=== PATIENT | male | born 1975 | race Caucasian/White ===

== ENCOUNTER 2017-03-02 13:51 | Emergency (ER) | payer BC ==
[~2017-03-02 13:51] MED LIST: Acetaminophen/HYDROcodone 325-5 MG Tab PO ONE; Amoxicillin 500 MG Cap PO ONE
[2017-03-02 13:58] VITALS: BP 154/95
[2017-03-02] MEDS ORDERED: Lidocaine 2% Viscous Solution 15 ML Cup PO ONE (14:14)
[2017-03-02] MEDS ORDERED: Take Home: Amoxicillin 500 MG Cap, 2 Cap Pack PO ONE (14:14)
[2017-03-02] MEDS ORDERED: Aluminum Hydroxide/Magnesium Hydroxide/Simethicone Susp 30 ML Cup PO ONE (14:14)
[2017-03-02] MEDS ORDERED: Amoxicillin 500 MG Cap PO ONE (14:14)
[2017-03-02] MEDS ORDERED: Acetaminophen/HYDROcodone 325-5 MG Tab PO ONE (14:17)
[2017-03-02] MEDS ORDERED: Take Home: Acetaminophen/HYDROcodone 325-5 MG, 2 Tab Pack PO ONE (14:17)
--- NOTE | 2017-03-02 14:30 | EDM.PDOC ---
ED HPI GENERAL MEDICAL PROBLEM - General Chief Complaint: ENT Problem Stated Complaint: TOOTHACHE Time Seen by Provider: 03/02/17 14:03 Source of Information: Reports: Patient History Limitations: Reports: No Limitations - History of Present Illness INITIAL COMMENTS - FREE TEXT/NARRATIVE: This patient is a 41 year old male that presents to the ER. Patient reports that since Friday he has had right lower frontal tooth pain. Patient denies lopez, dizziness, n, v, d, f. No trismus. Airway intact. No facial cellulitis. Stable. Onset Date: 02/26/17 Location: Reports: Other (right frontal lower tooth.). Denies: Head, Face, Neck , Chest, Abdomen, Back, Pelvis Quality: Reports: Ache Severity: Mild Improves with: Reports: None Worsens with: Reports: None Associated Symptoms: Reports: No Other Symptoms. Denies: Confusion, Chest Pain , Cough, cough w sputum, Diaphoresis, Fever/Chills, Headaches, Loss of Appetite , Malaise, Nausea/Vomiting, Rash, Seizure, Shortness of Breath, Syncope, Weakness Tooth/Teeth Pain Score (Numeric/FACES): 8 - Related Data Allergies Allergy/AdvReac Type Severity Reaction Status Date / Time No Known Allergies Allergy Verified 03/02/17 13:58 Home Meds: Home Meds Dexlansoprazole [Dexilant] 60 mg PO DAILY 03/02/17 [History] Fluticasone Propionate [Fluticasone Propionate] 1 spray NASBOTH DAILY 03/02/17 [ History] Past Medical History HEENT History: Reports: Allergic Rhinitis - Past Surgical History HEENT Surgical History: Reports: Naso-Sinus Surgery, Oral Surgery Social & Family History - Tobacco Use Smoking Status *Q: Never Smoker - Caffeine Use Caffeine Use: Reports: Coffee, Soda - Alcohol Use Days Per Week of Alcohol Use: 7 Number of Drinks Per Day: 6 Total Drinks Per Week: 42 - Recreational Drug Use Recreational Drug Use: No ED ROS ENT - Review of Systems Review Of Systems: See Below Constitutional: Reports: No Symptoms HEENT: Reports: Other (tooth pain right lower frontal) Respiratory: Reports: No Symptoms Cardiovascular: Reports: No Symptoms Endocrine: Reports: No Symptoms GI/Abdominal: Reports: No Symptoms : Reports: No Symptoms Musculoskeletal: Reports: No Symptoms Skin: Reports: No Symptoms Neurological: Reports: No Symptoms Psychiatric: Reports: No Symptoms Hematologic/Lymphatic: Reports: No Symptoms Immunologic: Reports: No Symptoms ED EXAM, ENT - Physical Exam Exam: See Below Exam Limited By: No Limitations General Appearance: Alert, WD/WN, No Apparent Distress Eye Exam: Bilateral Eye: Normal Inspection, PERRL Ears: Normal External Exam, Normal Canal, Hearing Grossly Normal, Normal TMs Nose: Normal Inspection, Normal Mucousa, No Blood Mouth/Throat: Normal Lips, Normal Oropharynx, Dental Pain (right frontal lower) , Dental Tenderness (mild right frontal lower), Gum Swelling (mild right frontal lower). No: Dental Abcess, Dental Trauma Head: Atraumatic, Normocephalic Neck: Normal Inspection, Supple, Non-Tender, Full Range of Motion. No: Limited Range of Motion, Lymphadenopathy (L), Lymphadenopathy (R) Respiratory/Chest: No Respiratory Distress, Lungs Clear, Normal Breath Sounds, No Accessory Muscle Use Cardiovascular: Normal Peripheral Pulses, Regular Rate, Rhythm, No Edema, No Gallop, No JVD, No Murmur, No Rub Extremities: Normal Inspection Neurological: Alert, Oriented Psychiatric: Normal Affect, Normal Mood Skin: Warm, Dry, Intact, Normal Color, No Rash Lymphatic: No Adenopathy Course - Vital Signs Last Recorded V/S: Last Vital Signs Temp 97.6 F 03/02/17 13:56 Pulse 70 03/02/17 13:56 Resp 16 03/02/17 13:56 BP 154/95 H 03/02/17 13:56 Pulse Ox 97 03/02/17 13:56 - Orders/Labs/Meds Meds: Medications Discontinued Medications Generic Name Dose Route Start Last Admin Trade Name Renae PRN Reason Stop Dose Admin Hydrocodone Bitart/Acetaminophen 1 tab 03/02/17 14:17 03/02/17 14:26 Lucas 325-5 Mg PO 03/02/17 14:18 1 tab ONETIME ONE Administration Hydrocodone Bitart/Acetaminophen 2 packet 03/02/17 14:17 03/02/17 14:27 Take Home: Acetaminophen/Hydrocod, 2 Tab Pack PO 03/02/17 14:18 2 packet ONETIME ONE Administration Al Hydroxide/Mg Hydroxide 30 ml 03/02/17 14:14 03/02/17 14:27 Mag-Al Plus PO 03/02/17 14:15 30 ml ONETIME ONE Administration Amoxicillin 2 packet 03/02/17 14:14 03/02/17 14:27 Take Home: Amoxicillin 500 Mg, 2 Cap Pack PO 03/02/17 14:15 2 packet ONETIME ONE Administration Amoxicillin 500 mg 03/02/17 14:14 03/02/17 14:26 Amoxil PO 03/02/17 14:15 500 mg ONETIME ONE Administration Lidocaine HCl 15 ml 03/02/17 14:14 03/02/17 14:27 Xylocaine 2% Viscous PO 03/02/17 14:15 15 ml ONETIME ONE Administration Departure - Departure Time of Disposition: 14:26 Disposition: Home, Self-Care 01 Condition: good Clinical Impression: Dental caries - Discharge Information Instructions: Dental Abscess, [id number] Referrals: Esau Charlton MD [Primary Care Provider] - Forms: ED Department Discharge Additional Instructions: Followup with a Dentist Followup with your primary care provider as needed Return to the ER for worsening of condition or any emergent concerns Increase fluids Ice to painful area Amoxicillin 500mg 1 pill three times a day for 10 days #26 no refill #4 take home. Lucas 5/325mg 1-2 pills every 4-6 hours as needed for pain #15 n orefill #4 take home. - Assessment/Plan Plan: PLEASE SEE RN NOTE FOR PFSH.
== END 2017-03-02 14:40 | disposition home or self-care (01) ==
LOC: CC.ED 13:51
DX: K02.9 Dental caries, unspecified (principal); Z79.899 Other long term (current) drug therapy
CPT/HCPCS: 99282; A9270

== ENCOUNTER 2017-07-28 19:03 | Emergency (ER) | payer BC ==
[2017-07-28 19:10] VITALS: BP 110/91
[2017-07-28] MEDS ORDERED: Ketorolac 30 MG/ML SDV IVPUSH ONE (19:55)
--- NOTE | 2017-07-28 20:02 | EDM.PDOC ---
ED HPI GENERAL MEDICAL PROBLEM - General Chief Complaint: Abdominal Pain Stated Complaint: abdominal pain Time Seen by Provider: 07/28/17 19:34 Source of Information: Reports: Patient History Limitations: Reports: No Limitations - History of Present Illness INITIAL COMMENTS - FREE TEXT/NARRATIVE: Patient is a 42 year old male who presents to the ER with complaints of pelvic pain radiating to his back. He reports that about a week ago he was traveling for work and had a "rough ride." He returned home about 8 days ago and since then hasn't felt "quite right." He reports the pain initially started in the right side of his chest. He wondered if the rough truck ride caused an injury of some sort. He had a CXR done in clinic today which was negative. He then reports that yesterday he started having urinary frequency and through the night last night it got to a point where he was going to the bathroom every 5 minutes. He also reports that he had a fever at home, for which he has been taking Tylenol and ibuprofen. Last dose of tylenol was 30 minutes prior to arrival. Temperature on arrival 101.2 deg F. He reports that he was seen in the clinic today and diagnosed with UTI. His and him are wondering why he has been getting these UTIs and wondering if something else is going on. He reports that he was prescribed cipro and started that today. He reports that throughout the day he has developed more pain in his pelvic/groin area, with radiation to his back, prompting his ER visit. Patient reports urinary frequency, nausea, chest pain, and some lightheadedness. He denies any dysuria, hematuria, vomiting, diarrhea, shortness of breath. He reports that he has had some constipation, but he did have two hard small stools today. Does report he has had one episode of UTI in the past that took "about a month to get rid of." He reports that for about the past year he has had some issues with leaking urine, as well as difficulty emptying bladder completely. He reports he has noticed that his urinary stream has decreased and he has to strain to empty his bladder. Onset: Gradual Duration: Getting Worse Location: Reports: Pelvis Quality: Reports: Ache Severity: Moderate Associated Symptoms: Reports: Chest Pain, Fever/Chills, Loss of Appetite, Nausea /Vomiting (nausea), Weakness (fatigue). Denies: Confusion, Cough, cough w sputum, Diaphoresis, Headaches, Malaise, Rash, Seizure, Shortness of Breath, Syncope Treatments ISSUER: Reports: Acetaminophen, NSAIDS, Other Medication(s) ( Ciprofloxacin) Groin Pain Score (Numeric/FACES): 5 - Related Data Allergies Allergy/AdvReac Type Severity Reaction Status Date / Time No Known Allergies Allergy Verified 03/02/17 13:58 Home Meds: Home Meds Dexlansoprazole [Dexilant] 60 mg PO DAILY 03/02/17 [History] Fluticasone Propionate 1 spray NASBOTH DAILY 03/02/17 [History] ALPRAZolam [Alprazolam] 0.5 mg PO BID PRN 07/28/17 [History] Ciprofloxacin HCl [Cipro] 500 mg PO BID 07/28/17 [History] Naproxen [IMW: Naproxen] 500 mg PO Q8HR PRN #30 tab 07/28/17 [Rx] Tamsulosin HCl [Flomax] 0.4 mg PO DAILY #30 cap.er.24h 07/28/17 [Rx] Past Medical History HEENT History: Reports: Allergic Rhinitis Genitourinary History: Reports: UTI, Recurrent - Past Surgical History HEENT Surgical History: Reports: Naso-Sinus Surgery, Oral Surgery Social & Family History - Tobacco Use Smoking Status *Q: Former Smoker Used Tobacco, but Quit: Yes Month Tobacco Last Used: 8 YEARS AGO - Caffeine Use Caffeine Use: Reports: Coffee - Alcohol Use Days Per Week of Alcohol Use: 7 Number of Drinks Per Day: 12 Total Drinks Per Week: 84 - Recreational Drug Use Recreational Drug Use: No ED ROS GENERAL - Review of Systems Review Of Systems: See Below Constitutional: Reports: Fever, Chills, Fatigue, Decreased Appetite. Denies: Malaise, Weakness, Night Sweats, Diaphoresis, Weight Gain HEENT: Reports: No Symptoms Respiratory: Reports: No Symptoms. Denies: Shortness of Breath, Cough Cardiovascular: Reports: No Symptoms, Chest Pain ED EXAM, RENAL/ - Physical Exam Exam: See Below Exam Limited By: No Limitations General Appearance: Alert, WD/WN, No Apparent Distress Eye Exam: Bilateral Eye: EOMI, Normal Fundi, Normal Inspection Head: Atraumatic, Normocephalic Neck: Normal Inspection, Supple, Non-Tender, Full Range of Motion Respiratory/Chest: No Respiratory Distress, Lungs Clear, Normal Breath Sounds, No Accessory Muscle Use, Chest Non-Tender Cardiovascular: Normal Peripheral Pulses, Regular Rate, Rhythm, No Edema, No Gallop, No JVD, No Murmur, No Rub GI/Abdominal: Normal Bowel Sounds, Soft, No Organomegaly, No Distention, No Abnormal Bruit, No Mass, Pelvis Stable, Tender (pelvic). No: Guarding, Rigid, Rebound (Male) Exam: No Hernia, Normal Inspection, Circumcised, Suprapubic Fullness. No: Inguinal Lymphadenopathy, Penile Lesions, Scrotal Swelling, Scrotum Tenderness (L), Scrotum Tenderness (R), Testicular Mass, Testicular Tenderness ( L), Testicular Tenderness (R), Urethral Discharge Rectal (Males) Exam: Normal Rectal Tone, Other (prostate tenderness) Back Exam: Normal Inspection, Full Range of Motion. No: CVA Tenderness (L), CVA Tenderness (R) Extremities: Normal Inspection, Normal Range of Motion, Non-Tender, Normal Capillary Refill, No Pedal Edema Neurological: Alert, Oriented, CN II-XII Intact, Normal Cognition, Normal Gait, Normal Reflexes, No Motor/Sensory Deficits Psychiatric: Normal Affect, Normal Mood Skin Exam: Warm, Dry, Intact, Normal Color, No Rash Lymphatic: No Adenopathy Course - Vital Signs Last Recorded V/S: Last Vital Signs Temp 100.5 F 07/28/17 19:42 Pulse 99 07/28/17 19:03 Resp 16 07/28/17 19:03 BP 110/91 H 07/28/17 19:03 Pulse Ox 99 07/28/17 19:03 - Orders/Labs/Meds Orders: Active Orders 24 hr Category Date Time Status Abdomen Pelvis wo Cont [CT] Stat Exams 07/28/17 19:18 Taken CHLAMYDIA/GC NUCLEIC ACID AMP [MREF] Stat Lab 07/28/17 20:50 Received Labs: Laboratory Tests 07/28/17 07/28/17 07/28/17 Range/Units 19:45 19:45 19:45 WBC 14.0 H (5.0-10.0) 10^3/uL RBC 4.42 L (4.50-6.00) 10^6/uL Hgb 14.5 (14.0-18.0) g/dL Hct 42.6 (40.0-54.0) % MCV 96.4 H (82.0-94.0) fL MCH 32.8 H (27.0-32.0) pg MCHC 34.0 (33.0-38.0) g/dL RDW Coeff of Rodríguez 12.3 (11.0-15.0) % Plt Count 210 (150-400) 10^3/uL Neut % (Auto) 84.7 (35-85) % Lymph % (Auto) 5.4 L (10-55) % Throckmorton % (Auto) 9.1 (0-16) % Eos % (Auto) 0.7 (0-5) % Baso % (Auto) 0.1 (0-3) % Neut # (Auto) 11.81 H (1.80-7.00) 10^3/uL Lymph # (Auto) 0.75 L (1.00-4.80) 10^3/uL Throckmorton # (Auto) 1.27 H (0.00-0.80) 10^3/uL Eos # (Auto) 0.10 (0.00-0.45) 10^3/uL Baso # (Auto) 0.02 10^3/uL Sodium 140 (136-145) mEq/L Potassium 4.1 (3.5-5.0) mEq/L Chloride 101 (98-106) mEq/L Carbon Dioxide 29 (21-32) mmol/L BUN 13 (7-18) mg/dL Creatinine 1.1 (0.7-1.3) mg/dL Est Cr Clr Drug Dosing 97.98 mL/min Estimated GFR (MDRD) > 60 (>=60) mL/min Glucose 111 H (75-99) mg/dL Calcium 9.6 (8.4-10.1) mg/dL Troponin I < 0.017 (0.00-0.06) ng/mL C-Reactive Protein 12.5 H (0.2-0.8) mg/dL Meds: Medications Discontinued Medications Generic Name Dose Route Start Last Admin Trade Name Freq PRN Reason Stop Dose Admin Ketorolac Tromethamine 30 mg 07/28/17 19:55 07/28/17 20:04 Toradol IVPUSH 07/28/17 19:56 30 mg ONETIME ONE Administration - Radiology Interpretation Free Text/Narrative:: Fat stranding at the bladder base as well as the seminal vesicles. Likely indicating infectious of inflammatory process. Seminal vesicle fat stranding suggest acute prostatitis. Otherwise negative CT. No kidney stones. CT Results Date: 07/28/17 CT Results Time: 20:35 - Re-Assessments/Exams Free Text/Narrative Re-Assessment/Exam: 07/28/17 20:[address] results and labs with patient and . Rectal exam completed. Prostate slightly tender on exam. Departure - Departure Time of Disposition: 21:00 Disposition: Home, Self-Care 01 Condition: Fair Clinical Impression: Prostatitis, acute, UTI (urinary tract infection) - Discharge Information Prescriptions: Naproxen [IMW: Naproxen] 500 mg PO Q8HR PRN #30 tab PRN Reason: Pain Tamsulosin HCl [Flomax] 0.4 mg PO DAILY #30 cap.er.24h Instructions: Urinary Tract Infection, Adult, Prostatitis, [id number], Pain Medicine Instructions, [id number] Referrals: Esau Charlton MD [Primary Care Provider] - Forms: ED Department Discharge Additional Instructions: CT shows fat stranding of seminal vesicles indicating acute prostatitis. Will extend current antibiotic (ciprofloxacin) to cover for 4 weeks. Will discuss antibiotic regimen once urine culture and sensitivity are completed to ensure adequate coverage. Referral to urology once current infection resolves. Tylenol or ibuprofen as needed for fever. Pain medications as prescribed. Script sent with patient as well as take home medications for this evening. Will start flomax 0.4 mg daily. Follow up in clinic in 4 weeks. Return to ER for worsening of condition, fever, or nausea/vomiting and inability to keep fluids down. - Problem List & Annotations (1) Prostatitis, acute SNOMED Code(s): 26785234 Code(s): N41.0 - ACUTE PROSTATITIS Status: Acute Priority: High (2) UTI (urinary tract infection) SNOMED Code(s): 54529339 Code(s): N39.0 - URINARY TRACT INFECTION, SITE NOT SPECIFIED Status: Acute Priority: High Qualifiers: Urinary tract infection type: acute cystitis Hematuria presence: without hematuria Qualified Code(s): N30.00 - Acute cystitis without hematuria - Problem List Review Problem List Initiated/Reviewed/Updated: Yes - My Orders Last 24 Hours: My Active Orders 07/28/17 19:18 Abdomen Pelvis wo Cont [CT] Stat 07/28/17 20:50 CHLAMYDIA/GC NUCLEIC ACID AMP [MREF] Stat - Assessment/Plan Last 24 Hours: My Active Orders 07/28/17 19:18 Abdomen Pelvis wo Cont [CT] Stat 07/28/17 20:50 CHLAMYDIA/GC NUCLEIC ACID AMP [MREF] Stat Assessment:: Acute prostatitis UTI Plan: CT shows fat stranding of seminal vesicles indicating acute prostatitis. Will extend current antibiotic (ciprofloxacin) to cover for 4 weeks. Will discuss antibiotic regimen once urine culture and sensitivity are completed to ensure adequate coverage. Referral to urology once current infection resolves. Tylenol or ibuprofen as needed for fever. Pain medications as prescribed. Script sent with patient. Will start flomax 0.4 mg daily. Follow up in clinic in 4 weeks. Return to ER for worsening of condition, fever, or nausea/vomiting and inability to keep fluids down.
[2017-07-28 20:06] LABS: CHLORIDE,CL 101 mEq/L (98-106); SODIUM,NA 140 mEq/L (136-145)
== END 2017-07-28 21:15 | disposition home or self-care (01) ==
LOC: CC.ED 19:03
DX: N41.0 Acute prostatitis (principal); N39.0 Urinary tract infection, site not specified; Z87.891 Personal history of nicotine dependence; Z79.899 Other long term (current) drug therapy; R07.81 Pleurodynia; R33.9 Retention of urine, unspecified
CPT/HCPCS: 36415; 71100; 74176; 80048; 81001; 84484; 85025; 86140; 87086; 87088; 87491; 87591; 96372; 99284; J1885; 87186